=== PATIENT | male | born 1985 | race Two or more races ===

== ENCOUNTER → 2022-10-03 | Outpatient (CLI) | payer OTHER, SELFPAY ==
--- NOTE | 2022-10-03 18:20 | MRI_ITS ---
STUDY: MRI RIGHT SHOULDER REASON FOR EXAM: Male, 36 years old. STRAIN STRAIN TECHNIQUE: Standardized fat and water weighted pulse sequences were obtained in all 3 orthogonal planes. COMPARISON: None. FINDINGS: Normal supraspinatus tendon. Normal infraspinatus tendon. Normal subscapularis tendon. Normal teres minor tendon. Normal supraspinatus muscle. Normal infraspinatus muscle. Normal subscapularis muscle. Normal teres minor muscle. Normal glenohumeral articulation. Normal humeral head and visualized proximal humerus. Normal biceps labral complex. Normal intracapsular long biceps tendon. Normal labrum. Normal capsulo- ligamentous complex. Normal rotator interval. Normal acromioclavicular articulation. There is minimal fluid distention of the subacromial bursa, consistent with mild subacromial-subdeltoid bursitis. Normal visualized coracohumeral and coracoacromial ligaments. Normal quadrilateral space. Normal axillary space. Normal deltoid muscle. Normal trapezius muscle. MRI/Upper Ext Joint Only(Routine) IMPRESSION: There is minimal fluid distention of the subacromial bursa, consistent with mild subacromial-subdeltoid bursitis. Electronically Signed: Ryan Slade MD at 20:29 EST Reading Location ID and State: [facility] / [place] , Service support ,
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
== END | disposition home or self-care (01) ==
PROVIDERS: Visit Provider Physician Assistant Surgical
DX: S46.911A Strain of unspecified muscle, fascia and tendon at shoulder and upper arm level, right arm, initial encounter (principal)
CPT/HCPCS: 71046; 73221

== ENCOUNTER 2022-10-24 13:30 | Outpatient (RCR) | payer OTHER, SELFPAY ==
--- NOTE | 2022-09-26 14:20 | HP.PTEVAL_ITS ---
Patient's Visit Information LIANNA JARRETT is a 36 year old M referred to Physical Therapy by Tono Arteaga PA-C with a diagnosis of Strain unspecified muscle/tendon right arm, S46.911A. Date of Evaluation: 09/26/22 Physical Therapist: Philippe Leblanc - Visit Plan Frequency: 2-3x /Week Duration: 6 Weeks Plan: Focus on improving right shoulder PROM, AAROM, AROM, and RTC/scapular strengthening as tolerated. Use manual therapy and modalities as needed for pain control. - Subjective Pt. is a 36 y.o. male who injured his right arm on 09-03-22 when he was lifting something at work to put on a pallet overhead and felt a pop in his right shoulder. His PLOF includes history of right shoulder pain a couple years ago. He had x-ray which was normal. Pt. is scheduled for an MRI of his shoulder on 10-03-22. Pt. is right handed. He denies any numbness or tingling in his right arm. He also reports occasional right sided neck pain as well. He has difficulty with reaching overhead, reaching out to the side, reaching behind his back, sleeping, driving, lifting things, pushing/pulling, housework, yard work, and work activity. Pt. works at [employer] and is currently on light duty at work. His goal with physical therapy is to get his right arm back to normal. He has never had physical therapy in the past. Pt. rates right shoulder pain currently at 7/10, at worst 9/10, at best 5/10 and describes the pain as sharp and stabbing. He is not taking any pain medication currently. Pt. PMH is unremarkable. His hobbies include running, spending time with family, and friends. - Objective Posture- Good posture in standing. Palpation- Tenderness over anterior right shoulder. Neck AROM- WNL for all motions. AROM right shoulder flexion 135 degrees, abduction 90 degrees, ER 65 degrees, IR 70 degrees. PROM right shoulder flexion 140 degrees, abduction 150 degrees, ER 78 degrees, IR 72 degrees. AROM left shoulder flexion 170 degrees, abduction 174 degrees, ER 86 degrees, and IR 65 degrees. PROM left shoulder- NT. Right shoulder strength flexion 3-/5, abduction 3-/5, ER 3-/5, IR 4+/5. Left shoulder strength flexion 5/5, abduction 5/5, ER 5/5, IR 5/5. Special tests- Hawkin's Jerman [+], Painful [+], Drop arm [-], Lift off [-], Drop arm [-], Speed's test [+], Full can/Empty can [+] - Balance/Special Test Scores Quick DASH Score: 79.5450 - Goals Goal 1:: Pt. will improve right shoulder AROM flexion and abduction > 160 degrees in order to improve reaching overhead. Goal Time Frame: 4-6 Weeks Goal 2:: Pt. will improve right shoulder strength to 4/5 for all motions in order to complete ADL's. Goal Time Frame: 4-6 Weeks Goal 3:: Pt. will be able to sleep a full night with no right shoulder pain. Goal Time Frame: 4-6 Weeks Goal 4:: Pt. will be able to lift at least 20# overhead with right shoulder pain < 3/10. Goal Time Frame: 4-6 Weeks Goal 5:: Pt. will be able to return to work full day with right shoulder pain < 3/10. Goal Time Frame: 4-6 Weeks Goal 6:: Pt. will improve Quick Dash score < 50 impairment in order to improve ADL's. Goal Time Frame: 4-6 Weeks - Rehabilitation Potential Physical Therapy Diagnosis: Decreased right shoulder ROM, strength, and pain Rehabilitation Potential: Good - Anticipated Interventions Patient/Client Instruction: Educate patient on: Condition, Plan of Care For the Purpose of:: To improve ability to perform ADL's, To improve performance and independence with ADL's, To improve tolerance to ADL's Therapeutic Exercise to Include: Strength training, Passive ROM, Active ROM, Scapular Strength/Stabilization Comment: Focus on improving right shoulder PROM, AAROM, AROM, and RTC/scapular strengthening. For the Purpose of:: To decrease pain, To increase ROM, To improve muscle performance and motor function, To improve ability to perform ADL's, To improve performance and independence with ADL's, To increase flexibility/ROM, To assume or resume ADL's, To improve tolerance to ADL's Manual Therapy Techniques to Include: Mobilization, Passive ROM, Soft tissue mobilization For the Purpose of:: To decrease pain, To increase ROM, To improve ability to perform ADL's, To improve performance and independence with ADL's, To increase flexibility/ROM, To improve tolerance to ADL's IF ES: Yes Cryotherapy (ice pack, ice massage): Yes For the Purpose of:: To decrease pain, To decrease swelling/inflammation, To increase ROM Thank you for the opportunity to evaluate your patient. For Medicare and Medicare HMO plans, please review the plan of care and approve it. It will need to be FAXED BACK to us at [phone] for Medicare purposes. For Medicare only, by signing this I certify the plan of care. Please let me know if there are questions or concerns regarding this plan of care. Physician Signature: Date:
--- NOTE | 2022-10-24 14:22 | HP.PTREVAL ---
Tono Arteaga PA-C, It has been my pleasure to treat TOBI JARRETT over the last 11 visits for Strain unspecified muscle/tendon right arm, S43.541H. Please see the progress note below for an update on the physical therapy plan of care! Subjective: Pt. states that his shoulder is feeling better and he reports only mild pain at 2/10 currently. He reports that he still has difficulty with reaching behind his back. 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 Pt. states that he can't throw something without shoulder pain. Objective/Function: Tobi was re-evaluated today after coming to 12 sessions of physical therapy focusing on improving right shoulder ROM and strength. Reviewed his goals for therapy and he has met and is progressing towards meeting other goals for therapy. At this time, he would benefit from a few more weeks of therapy to work on improving his shoulder strength as he is showing progress. Discussed with pt. about following up with his doctor as his C9 approved 12 visits and he will need further extension of this. Educated pt. on adding shoulder towel IR stretch for home. Pt. noted his shoulder was sore after therapy but did not rate any pain. Plan Plan: Focus on improving right shoulder PROM, AAROM, AROM, and RTC/scapular strengthening as tolerated. Use manual therapy and modalities as needed for pain control. Balance/Gait/Functional tests - Balance/Special Test Scores Quick DASH Score: 70.4525 Goals Goal 1:: Pt. will improve right shoulder AROM flexion and abduction > 160 degrees in order to improve reaching overhead. Goal Time Frame: 4-6 Weeks Goal Progress: Goal Met. Goal 2:: Pt. will improve right shoulder strength to 4/5 for all motions in order to complete ADL's. Goal Time Frame: 4-6 Weeks Goal Progress: Progressing, Grossly 4-/5 Goal 3:: Pt. will be able to sleep a full night with no right shoulder pain. Goal Time Frame: 4-6 Weeks Goal Progress: Goal Met Goal 4:: Pt. will be able to lift at least 20# overhead with right shoulder pain < 3/10. Goal Time Frame: 4-6 Weeks Goal Progress: Progressing Goal 5:: Pt. will be able to return to work full day with right shoulder pain < 3/10. Goal Time Frame: 4-6 Weeks Goal Progress: Progressing Goal 6:: Pt. will improve Quick Dash score < 50 impairment in order to improve ADL's. Goal Time Frame: 4-6 Weeks Goal Progress: Progressing Anticipated Interventions Patient/Client Instruction: Educate patient on: Condition, Plan of Care For the Purpose of:: To improve ability to perform ADL's, To improve performance and independence with ADL's, To improve tolerance to ADL's Therapeutic Exercise to Include: Strength training, Passive ROM, Active ROM, Scapular Strength/Stabilization Comment: Focus on improving right shoulder PROM, AAROM, AROM, and RTC/scapular strengthening. For the Purpose of:: To decrease pain, To increase ROM, To improve muscle performance and motor function, To improve ability to perform ADL's, To improve performance and independence with ADL's, To increase flexibility/ROM, To assume or resume ADL's, To improve tolerance to ADL's Manual Therapy Techniques to Include: Mobilization, Passive ROM, Soft tissue mobilization For the Purpose of:: To decrease pain, To increase ROM, To improve ability to perform ADL's, To improve performance and independence with ADL's, To increase flexibility/ROM, To improve tolerance to ADL's IF ES: Yes Cryotherapy (ice pack, ice massage): Yes For the Purpose of:: To decrease pain, To decrease swelling/inflammation, To increase ROM Please do not hesitate to contact me at [phone] by phone or if you have questions or concerns regarding this new plan of care! Sincerely, Philippe Leblanc
--- NOTE | 2022-12-19 13:28 | HP.PTDCSUM ---
It has been my pleasure to treat TOBI JARRETT referred by Tono Arteaga PA-C, with the diagnosis of Strain unspecified muscle/tendon right arm, S48.962K for a total of 11 visit(s). Discharge Date: Please see the following information for a summary of their discharge status. Subjective: Pt. states that his shoulder is feeling better and he reports only mild pain at 2/10 currently. He reports that he still has difficulty with reaching behind his back. 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 Pt. states that he can't throw something without shoulder pain. R UE Pain Intensity (Out of 10): 2 % Improvement: 45 Objective/Function: Tobi was re-evaluated today after coming to 12 sessions of physical therapy focusing on improving right shoulder ROM and strength. Reviewed his goals for therapy and he has met and is progressing towards meeting other goals for therapy. At this time, he would benefit from a few more weeks of therapy to work on improving his shoulder strength as he is showing progress. Discussed with pt. about following up with his doctor as his C9 approved 12 visits and he will need further extension of this. Educated pt. on adding shoulder towel IR stretch for home. Pt. noted his shoulder was sore after therapy but did not rate any pain. Goal 1:: Pt. will improve right shoulder AROM flexion and abduction > 160 degrees in order to improve reaching overhead. Goal Progress: Goal Met. Goal 2:: Pt. will improve right shoulder strength to 4/5 for all motions in order to complete ADL's. Goal Progress: Progressing, Grossly 4-/5 Goal 3:: Pt. will be able to sleep a full night with no right shoulder pain. Goal Progress: Goal Met Goal 4:: Pt. will be able to lift at least 20# overhead with right shoulder pain < 3/10. Goal Progress: Progressing Goal 5:: Pt. will be able to return to work full day with right shoulder pain < 3/10. Goal Progress: Progressing Goal 6:: Pt. will improve Quick Dash score < 50 impairment in order to improve ADL's. Goal Progress: Progressing Plan: Focus on improving right shoulder PROM, AAROM, AROM, and RTC/scapular strengthening as tolerated. Use manual therapy and modalities as needed for pain control. If there are questions or concerns regarding this patient's physical therapy, please feel free to call me at [phone]. Thank you for the referral of this patient. Sincerely, Philippe Leblanc Balance/Gait/Functional tests - Balance/Special Test Scores Quick DASH Score: 70.4571
== END 2022-10-24 19:00 | disposition home or self-care (01) ==
LOC: PT 13:30
PROVIDERS: Referring Provider Physician Assistant Surgical; Visit Provider Physician Assistant Surgical
DX: S46.911D Strain of unspecified muscle, fascia and tendon at shoulder and upper arm level, right arm, subsequent encounter (principal)
CPT/HCPCS: 97014; 97110; 97161; 97164; G0283

== ENCOUNTER 2023-04-14 15:00 | Outpatient (RCR) | payer OTHER, SELFPAY ==
--- NOTE | 2023-02-04 16:11 | HP.PTEVAL_ITS ---
Patient's Visit Information LIANNA JARRETT is a 37 year old M referred to Physical Therapy by Dr. Riley Gamble, DO with a diagnosis of STRAIN MUSCLE/TENDON.FASCIA AR RIGHT SHOULDER/ARM ,RIGHT. Date of Evaluation: 02/04/23 Physical Therapist: Amaury Garcia, PT, Cert MDT, OCS - Visit Plan Frequency: 2x /Week Duration: 4 Weeks Plan: PT INTERVETIONS MANUAL THERAPY FOR PROM,G-H MOBS ,AAROM/AROM ,RTC/SCAPULAR STRENGTHNING AND MODALTIES FOR PAIN RELIEVE - Subjective This 37 y/o male presents to physical therapy with right shoulder pain. Patient initial injury shoulder at work on 09/03/22 lifting boxes 40-50 # repetitively. Seen Dr recommended PT and had MRI/x-rays. Patient diagnostics showed inflammation non surgery. Patient RTW ~ 2weeks.Patient RTW ~ 1week then pain returned . Saw DR Gamble recommended PT . Pain located global shoulder. Aggravating factors lifting ,OH activities ,holding something for length of time. Pain described as ache and occasional stabling pain . Alleviating factors rest . Patient is on light duty at work. Pain affects sleeping. Denies paresthesia/tingling. Goals to have no more pain. Prescribed medication. SOCIAL: single. VOACTION: [employer] - Pain Right Shoulder Pain Intensity (Out of 10): 8 Pain Intensity Range: 6, 10 - Objective POSTURE: mild forward posture ,rounded shoulders. PALPATION: tenders AC ,bicipital groove long head. NEURO: denies paresthesia/tingling , reflexes intact. AROM Shoulder: flexion 90 degrees ,abduction 80 degrees pain , IR T11. PROM Shoulder: flexion 140 ,abduction 150 ,ER 85. MMT: ( peak force ) infraspinatus 7.8, supraspinatus 5.6 ,deltoid 5.8 ,subscapularis 8.9. CAPSULAR RESTRICTION: mild tight. GH JOINT FUNCTION: 1:1 < - Special Tests R Shoulder Drop Sign - IS Test: Negative R Shoulder Empty Can - SS: Positive R Shoulder Neer - Impingement: Positive R Shoulder Bourgeois Jerman - Impingement: Positive - Balance/Special Test Scores Quick DASH Score: 56.8175 - Goals Goal 1:: Patient to be I with HEP Goal Time Frame: 4-6 Weeks Goal 2:: Patient to demonstrate 50% improvement with less pain and improved function. Goal Time Frame: 4-6 Weeks Goal 3:: Patient to increase AROM right shoulder flexion and abduction by 150 degrees to OH activities. Goal Time Frame: 4-6 Weeks Goal 4:: Patient to improve peak force of RTC and deltoid by 10 to improve function with OH activities. Goal Time Frame: 4-6 Weeks Goal 5:: Patient to improve quick dash by 5-10 points to improve QOL Goal Time Frame: 4-6 Weeks - Rehabilitation Potential Physical Therapy Diagnosis: This patient has pain ,weakness ,decrease ROM of right shoulder with capsular tightness impairs ADLS ,housework and unable to RTW normal duties thus benefit from skilled PT Rehabilitation Potential: Good - Anticipated Interventions Patient/Client Instruction: Educate patient on: Condition, Plan of Care For the Purpose of:: To decrease pain, To decrease swelling/inflammation, To increase ROM, To improve muscle performance and motor function, To improve ability to perform ADL's, To increase tolerance to activity/condition/position, To improve ability of physical actions for home/community/work/leisure, To improve health of tissue, To decrease soft tissue restriction, To increase flexibility/ROM, To improve endurance, To assume or resume ADL's, To reduce risk of recurrence Therapeutic Exercise to Include: Strength training, Body mechanics, Postural training, Flexibilty training, Passive ROM, Active ROM For the Purpose of:: To decrease pain, To increase ROM, To improve muscle perfor danette and motor function, To improve ability to perform ADL's, To increase tolerance to activity/condition/position, To improve ability of physical actions for home/community/work/leisure, To improve health of tissue, To decrease soft tissue restriction, To increase flexibility/ROM, To reduce risk of recurrence Manual Therapy Techniques to Include: Mobilization, Passive ROM Comment: G-H For the Purpose of:: To decrease pain, To increase ROM, To improve nutrient delivery to tissue, To increase oxygenation perfusion, To improve health of tissue, To decrease soft tissue restriction, To increase flexibility/ROM Thank you for the opportunity to evaluate your patient. For Medicare and Medicare HMO plans, please review the plan of care and approve it. It will need to be FAXED BACK to us at [phone] for Medicare purposes. For Medicare only, by signing this I certify the plan of care. Please let me know if there are questions or concerns regarding this plan of care. Physician Signature: Date:
--- NOTE | 2023-06-27 08:34 | HP.PTDCSUM ---
Discharge Summary D/C summary: It has been my pleasure to treat LIANNA JARRETT referred by Dr. Riley Gamble DO, with the diagnosis of STRAIN MUSCLE/TENDON.FASCIA AR RIGHT SHOULDER/ARM ,RIGHT for a total of 6 visit(s). Discharge Date: Please see the following information for a summary of their discharge status. Subjective Subjective: Doing better..but popping Pain Right Shoulder: Pain Intensity (Out of 10): 4 Overall Improvement % Improvement: 70 Objective Objective/Function: POSTURE: mild forward posture ,rounded shoulders. PALPATION:bicipital groove long head. N AROM Shoulder: flexion 150 degrees ,abduction 170 degrees pain , IR T11. MMT: ( peak force ) infraspinatus 17.8, supraspinatus 10.6 ,deltoid 10.8 ,subscapularis 16.9. CAPSULAR RESTRICTION: WFL tight. . Goals Goal 1:: Patient to be I with HEP Goal 2:: Patient to demonstrate 50% improvement with less pain and improved function. Goal 3:: Patient to increase AROM right shoulder flexion and abduction by 150 degrees to OH activities. Goal 4:: Patient to improve peak force of RTC and deltoid by 10 to improve function with OH activities. Goal 5:: Patient to improve quick dash by 5-10 points to improve QOL Plan Plan: PT INTERVETIONS MANUAL THERAPY FOR PROM,G-H MOBS ,AAROM/AROM ,RTC/SCAPULAR STRENGTHNING AND MODALTIES FOR PAIN RELIEVE D/C Information d/c sentence: If there are questions or concerns regarding this patient's physical therapy, please feel free to call me at [phone]. Thank you for the referral of this patient. Sincerely, Amaury Garcia, PT, Cert MDT, OCS Balance/Gait/Functional tests Balance/Special Test Scores Quick DASH Score: 9.0900 Improvement % Improvement: 70
== END 2023-04-14 19:00 | disposition home or self-care (01) ==
LOC: PT 15:00
PROVIDERS: Referring Provider Orthopaedic Surgery; Visit Provider Orthopaedic Surgery
DX: S46.911D Strain of unspecified muscle, fascia and tendon at shoulder and upper arm level, right arm, subsequent encounter (principal)
CPT/HCPCS: 97110; 97140; 97162